=== PATIENT | female | born 1970 | race Hispanic/Latino ===

== ENCOUNTER 2017-07-10 20:50 | Emergency (ER) | payer MEDICAID ==
[2017-07-10] MEDS ORDERED: IPRATROPIUM/ALBUTEROL SULFATE 3 ML SOLUTION IH ONE (21:53)
[2017-07-10 22:01] LABS: APPEARANCE,URINE Clear (CLEAR); BILIRUBIN,URINE Negative (NEGATIVE); COLOR,URINE Yellow (YELLOW); GLUCOSE, URINE (UA) Negative (NEGATIVE); KETONES,URINE Negative (NEGATIVE); LEUKOCYTE ESTERASE ,URINE Moderate (NEGATIVE); NITRATE,URINE Negative (NEGATIVE); OCCULT BLOOD,URINE Negative (NEGATIVE); PH,URINE 5.5 (5.0-8.0); PROTEIN,URINE Negative (NEGATIVE); UROBILINOGEN,URINE 0.2 mg/dL (0.2-1.0)
[2017-07-10] MEDS ORDERED: ACETAMINOPHEN 325 MG TAB ONE (22:01)
[2017-07-10] MEDS ORDERED: METHYLPREDNISOLONE SOD SUCC 125MG/2ML VIAL ONE (22:02)
[2017-07-10 22:16] LABS: BACTERIA,URINE Few /HPF (None Seen); RBC,URINE 0-1 /HPF (0-1); SQUAMOUS EPITHELIAL CELL,UR Few /LPF (0-2)
[2017-07-10 22:21] LABS: RAPID GROUP A STREP NEGATIVE (NEGATIVE)
== END 2017-07-10 22:41 | disposition home or self-care (01) ==
LOC: EDH 20:50
DX: J20.9 Acute bronchitis, unspecified (principal); N39.0 Urinary tract infection, site not specified; J11.1 Influenza due to unidentified influenza virus with other respiratory manifestations; I10 Essential (primary) hypertension; Z98.51 Tubal ligation status; Z90.710 Acquired absence of both cervix and uterus; Z72.0 Tobacco use
CPT/HCPCS: 71046; 81001; 87804 ×2; 87880; 94640; 96372; 99285; J2930

== ENCOUNTER 2020-11-30 00:01 | Emergency (ER) | payer MEDICAID ==
[~2020-11-30] VITALS: Ht 149.9 cm; Wt 65.8 kg
[2020-11-30 00:15] VITALS: BP 141/85
[2020-11-30 00:30] VITALS: BP 138/80
[2020-11-30] MEDS ORDERED: MORPHINE 4 MG SYG IV ONE (00:45)
[2020-11-30] MEDS ORDERED: TRAMADOL HCL 50 MG TABLET PO ONE (01:15)
[2020-11-30] MEDS ORDERED: IBUP-2070 PO (02:19)
== END 2020-11-30 02:46 | disposition home or self-care (01) ==
LOC: EDH 00:01
DX: S97.82XA Crushing injury of left foot, initial encounter (principal); I10 Essential (primary) hypertension; F41.9 Anxiety disorder, unspecified; F32.9 Major depressive disorder, single episode, unspecified; Z98.51 Tubal ligation status; Z90.49 Acquired absence of other specified parts of digestive tract; W23.0XXA Caught, crushed, jammed, or pinched between moving objects, initial encounter; Y93.89 Activity, other specified; Y92.89 Other specified places as the place of occurrence of the external cause; Y99.8 Other external cause status
CPT/HCPCS: 73590; 73630; 99284; J2270